=== PATIENT | male | born 1945 | race Caucasian/White ===

== ENCOUNTER → 2016-07-18 | Outpatient (CLI) | payer MEDICARE, OTHER ==
[~2016-07-18] MED LIST: ALBUTEROL0.83 MG/ML IH; ALBUTEROL1.25 MG/3 IH; ASPI325T6 PO; ASPIRIN 32325 MG/TAB PO; ASPIRIN 81M81 MG/TA2 PO; BETAPACE AF80 MG/TA1 PO; BETAPACEAF120 PO; BRILINTA90 MG PO; BUMEX2 MG PO; CARDIZEM CD 18180 MG PO; COUMADIN 5MG5 MG/TAB PO; EFFIENT10 MG PO; ELIQUIS 5MG PO; IMDUR 30MG30 MG/TAB PO; LASIX 40MG TABL40 MG PO; LIPITOR 10MG10 MG PO; LISINOPRIL/HCTZ1 TA1 PO; LISINOPRIL/HCTZ1 TAB PO; LOPRESSOR 225 MG/TAB PO; LORTAB 5/500 501 TAB PO; LOVENOX120 MG/0.8 SC; MICROZIDE12.5 MG PO; NEURONTIN300 MG/CAP PO; NITROSTAT0.4 MG/TAB SL; NORCO 325 MG-51 TAB PO; PHENERGAN 25 TA25 MG PO; PLAVIX 75MG TAB75 MG PO; PRIL40; PRIL40 PO; PRINZIDE 12.5 M1 TA1 PO; TIAZAC180 MG PO; ZESTRIL 20MG TA20 MG PO; ZYLOPRIM 100MG100 MG PO
== END ==
LOC: MHCPAIN 11:09
DX: G89.29 Other chronic pain (principal); M17.0 Bilateral primary osteoarthritis of knee; M16.0 Bilateral primary osteoarthritis of hip
CPT/HCPCS: G0463

== ENCOUNTER 2018-12-17 08:07 | Day surgery (SDC) | payer MEDICARE ==
[2018-12-17] VITALS (328 sets, daily range): BP systolic 123–147; BP diastolic 68–90; PULSE 60–71; TEMP 98; O2SAT 94–100
[~2018-12-17] VITALS: Ht 177.8 cm; Wt 115.0 kg
[2018-12-17 09:11] LABS: HEMOGLOBIN 10.6 g/dl (13.5-18.0); MEAN CELL VOLUME 80 fl (80.0-100.0); MEAN CORPUSCULAR HEMOGLOBIN 24 pg (27.0-31.0); MEAN CORPUSCULAR HGB CONC 30 g/dl (33.0-37.0); MEAN PLATELET VOLUME 8.2 fl (7.4-10.4); PLATELET COUNT 115 K/mm3 (130-400); RED BLOOD COUNT 4.42 M/mm3 (4.20-5.60); REDCELL DISTRIBUTION WIDTH-CV 14.2 % (11.5-14.5)
[2018-12-17 09:12] LABS: HEMATOCRIT 35.3 % (42.0-52.0)
[2018-12-17 09:17] LABS: INR 1.1 (0.8-3.0); PROTHROMBIN TIME 13.3 SECONDS (9.7-12.8)
[2018-12-17 09:19] LABS: PARTIAL THROMBOPLASTIN TIME 34.7 SECONDS (26.0-37.0)
[2018-12-17 09:20] LABS: CALCIUM 8.8 mg/dL (8.4-10.2); CREATININE, serum 0.74 (0.66-1.25); POTASSIUM 4.3 mmol/L (3.4-5.0)
[2018-12-17] MEDS ORDERED: PLAVIX 75MG TAB75 MG PO (10:04)
[2018-12-17] MEDS ORDERED: TRIAMCINOLONE A15 G3 TP (10:07)
[2018-12-17] MEDS ORDERED: COUMADIN 5MG5 MG/TAB PO (10:08)
--- NOTE | 2018-12-17 11:03 | NUR ---
SEE MERGE DOCUMENTATION FOR MEDICATION ADMINISTRATION TIMES AND INTRA/POST PROCEDURE SEDATION ASSESSMENTS. MD NOTIFIED OF LAB RESULTS PRIOR TO START OF CASE.
--- NOTE | 2018-12-17 16:23 | NUR ---
Purpura to Right wrist is at baseline according to patient.
[2018-12-18] VITALS (192 sets, daily range): BP systolic 148–158; BP diastolic 84–90; PULSE 59–61; TEMP 97.5–98; O2SAT 92–100
[2018-12-18 06:26] LABS: BASO % 0.8 % (0.0-2.0); EOS # 0.1 (0.0-0.7); EOS % 2.3 % (0-4.0); GRAN # 1.6 (1.4-6.5); GRAN % 63.3 % (42.2-75.2); HEMOGLOBIN 10.2 g/dl (13.5-18.0); LYMPH # 0.7 (1.2-3.4); LYMPH % 26.6 % (20.0-51.0); MEAN CELL VOLUME 79 fl (80.0-100.0); MEAN CORPUSCULAR HEMOGLOBIN 24 pg (27.0-31.0); MEAN CORPUSCULAR HGB CONC 31 g/dl (33.0-37.0); MEAN PLATELET VOLUME 8.3 fl (7.4-10.4); MONO # 0.2 (0.1-0.6); MONO % 6.2 % (1.7-9.3); PLATELET COUNT 99 K/mm3 (130-400); RED BLOOD COUNT 4.18 M/mm3 (4.20-5.60); REDCELL DISTRIBUTION WIDTH-CV 14.3 % (11.5-14.5)
[2018-12-18 06:31] LABS: HEMATOCRIT 32.9 % (42.0-52.0)
[2018-12-18 06:53] LABS: CALCIUM 8.4 mg/dL (8.4-10.2); CREATININE, serum 0.67 (0.66-1.25); POTASSIUM 3.8 mmol/L (3.4-5.0)
--- NOTE | 2018-12-18 07:00 | NUR ---
Bedside report received from TOMÁS Laws. Right radial site evaluated. No s/s hematoma or bleeding.
[2018-12-18] MEDS ORDERED: LOPRESSOR 550 MG/TAB PO (08:45)
--- NOTE | 2018-12-18 10:10 | NUR ---
Discharge instructions and packet reviewed. follow up appointment with Suzie Matt discussed. Medication changes reviewed at this time. Peripheral IV discontinued at this time. All questions answered at this time. Patient wheeled out to visitor entrance with Daughter who will drive him home.
--- NOTE | 2018-12-18 11:08 | NUR ---
Initial visit; Patient thanked Hospitality Intern for looking in on him and offering God's blessings.
--- NOTE | 2018-12-18 14:04 | NUR ---
The patient discharged before social welfare research worker could do an intake.
== END 2018-12-18 10:10 | disposition home or self-care (01) ==
LOC: COL.CAR 08:07 → ICU 12:05 → COL.CAR 12-18 10:10
PROVIDERS: Internal Medicine Cardiovascular Disease; Nurse Practitioner
DX: I25.110 Atherosclerotic heart disease of native coronary artery with unstable angina pectoris (principal); I10 Essential (primary) hypertension; Z95.0 Presence of cardiac pacemaker; G47.33 Obstructive sleep apnea (adult) (pediatric); K21.9 Gastro-esophageal reflux disease without esophagitis; J44.9 Chronic obstructive pulmonary disease, unspecified; Z85.038 Personal history of other malignant neoplasm of large intestine; I48.0 Paroxysmal atrial fibrillation; Z79.01 Long term (current) use of anticoagulants; Z79.899 Other long term (current) drug therapy; Z87.891 Personal history of nicotine dependence; E78.2 Mixed hyperlipidemia; I05.9 Rheumatic mitral valve disease, unspecified; I47.1 Supraventricular tachycardia; I77.810 Thoracic aortic ectasia
CPT/HCPCS: OP; C1769; C1876; C1887; J1644; J2250; J3010; Q9967

== ENCOUNTER 2020-01-20 09:27 | Day surgery (SDC) | payer MEDICARE ==
[~2020-01-20] VITALS: Ht 177.8 cm; Wt 115.7 kg
[2020-01-20] VITALS (11 sets, daily range): BP systolic 114–141; BP diastolic 62–79; PULSE 52–62; TEMP 98.7
[~2020-01-20 09:27] MED LIST changes: +LOPRESSOR 550 MG/TAB PO; +TRIAMCINOLONE A15 G3 TP
[2020-01-20] MEDS ORDERED: ALTACE 5MG5 MG PO (09:41)
[2020-01-20] MEDS ORDERED: LOPRESSOR 550 MG/TAB PO (09:52)
--- NOTE | 2020-01-20 10:05 | NUR ---
Initial visit; Patient thanked Wound/Ostomy Nurse for offering encouragement and prayer prior to his surgical procedure.
[2020-01-20 10:06] LABS: MEAN CELL VOLUME 74 fl (80.0-100.0); MEAN CORPUSCULAR HGB CONC 28 g/dl (33.0-37.0); PLATELET COUNT 73 K/mm3 (130-400); RED BLOOD COUNT 3.87 M/mm3 (4.20-5.60); REDCELL DISTRIBUTION WIDTH-CV 16.6 % (11.5-14.5)
[2020-01-20 10:07] LABS: HEMATOCRIT 28.5 % (42.0-52.0); HEMOGLOBIN 7.9 g/dl (13.5-18.0); MEAN CORPUSCULAR HEMOGLOBIN 20 pg (27.0-31.0)
[2020-01-20 10:09] LABS: INR 1.9 (0.8-3.0); PROTHROMBIN TIME 21.8 SECONDS (9.7-12.8)
[2020-01-20 10:21] LABS: CALCIUM 8.5 mg/dL (8.4-10.2); CREATININE, serum 0.73 (0.66-1.25); POTASSIUM 3.7 mmol/L (3.4-5.0)
--- NOTE | 2020-01-20 11:06 | NUR ---
SEE MERGE DOCUMENTATION FOR MEDICATION ADMINISTRATION TIMES AND INTRA/POST PROCEDURE SEDATION ASSESSMENTS. RIGHT HAND BARBEAU TEST POSITIVE. PT CBC COUNTS BELOW NORMAL; MD NOTIFIED AND DISCUSSING WITH PT. PT WISHES TO PROCEED; OK'D WITH MD.
--- NOTE | 2020-01-20 11:30 | NUR ---
Report from Hardeep EN[place]. Transferred from dental lab technician by bed. VSS. Right Tband with 16 cc air CD&I, good pulses and cap refill < 3 secs.
--- NOTE | 2020-01-20 15:11 | NUR ---
16 cc air released from right Tband, no bleeding noted and dressing applied. INT discontinued intact. Discharge instructions given. Transferred to private car by sabrina
[2020-01-20 16:25] LABS: IRON,SERUM 21 ug/dL (35-150); TOTAL IRON BINDING CAPACITY 378 ug/dL (261-462)
== END 2020-01-20 15:13 | disposition home or self-care (01) ==
LOC: COL.CAR 09:27
PROVIDERS: Internal Medicine Cardiovascular Disease
DX: I25.110 Atherosclerotic heart disease of native coronary artery with unstable angina pectoris (principal); I10 Essential (primary) hypertension; E78.5 Hyperlipidemia, unspecified; I48.0 Paroxysmal atrial fibrillation; G47.33 Obstructive sleep apnea (adult) (pediatric); J44.9 Chronic obstructive pulmonary disease, unspecified; D50.9 Iron deficiency anemia, unspecified; Z95.0 Presence of cardiac pacemaker; I47.2 Ventricular tachycardia
CPT/HCPCS: J1644; J2250; J3010; Q9967